=== PATIENT | male | born 1950 | race Caucasian/White ===

== ENCOUNTER 2018-08-16 16:24 | Inpatient (IN) | payer MEDICARE, BC ==
[~2018-08-16] VITALS: Ht 180.3 cm; Wt 107.3 kg
--- NOTE | ~2018-08-16 | MORECARE ---
CASE MANAGEMENT DISCHARGE SUMMARY PATIENT: SAUL GUSTAFSON UNIT: [id number] ADM DATE: 08/16/18 AGE: 67 : 51 SEX: M ROOM/BED: D.2136 AUTHOR: TAB DOBBINS PHYSICIAN: REFERRING PHYSICIAN: AALIYAH QUINONES DO DATE OF SERVICE: 08/18/18 Discharge Plan Patient Name: SAUL GUSTAFSON Facility: [facility]:[place] : 1950 Planned Disposition: [facility] Facility w Plan Readm Anticipated Discharge Date: 08/18/18 Discharge Date: Expected LOS: 2 Initial Reviewer: [email or web address] Initial Review Date: 08/18/2018 Generated: 08/18/18 2:02 pm DCPIA - Discharge Planning Initial Assessment Updated by [email or web address]: Jayne Langford on 08/18/18 12:57 pm * Is the patient Alert and Oriented? Yes * [facility]read[facility] * Facility Name [facility] * ADLs Partial Dependent * Partial ADLs (Assistance needed) Ambulation * Equipment Nebulizer Walker * Community resources currently utilized None * Additional services required to return to the preadmission environment? No * Can the patient safely return to the preadmission environment? Yes * Has this patient been hospitalized within the prior 30 days at any hospital? No Patient Name: SAUL GUSTAFSON Page [id number] at 1302 All edits/amendments must be made on the electronic document DICTATION DATE: 08/18/18 1301 WRECKING MECHANIC: HARLAN 08/18/18 1301 RPT#: [id number] DC DATE: STATUS: ADM IN [facility] [address] [place] [address] END OF REPORT
--- NOTE | ~2018-08-16 | MORECARE ---
CASE MANAGEMENT DISCHARGE SUMMARY PATIENT: SAUL GUSTAFSON UNIT: [id number] ADM DATE: 08/16/18 AGE: 67 : 51 SEX: M ROOM/BED: D.2136 AUTHOR: TAB DOBBINS PHYSICIAN: REFERRING PHYSICIAN: AALIYAH QUINONES DO DATE OF SERVICE: 08/18/18 Discharge Plan Patient Name: SAUL GUSTAFSON Facility: [facility]:[place] : 1950 [facility] Plan Readm Anticipated Discharge Date: 08/18/18 Discharge Date: Expected LOS: 2 Initial Reviewer: [email or web address] Initial Review Date: 08/18/2018 Generated: 08/18/18 2:16 pm Comments DCP- Discharge Planning Updated by [email or web address]: Jayne Langford on 08/18/18 12:[address] Patient Name: SUAL GUSTAFSON Admission Status: Urgent Accout number: [id number] Admission Date: 08-16-2018 : 1950 Admission Diagnosis:PNEUMONIA, UNSPECIFIED ORGANISM Attending: AALIYAH QUINONES Current LOS: 2 Anticipated DC Date: 08-18-2018 [facility] Readm , PT IS IN A ALF BED AT THE [facility]. Primary Insurance: MEDICARE A & B Discharge Planning Comments: CM MET WITH PATIENT ABOUT DC PLANNING. STATES LIVES AT THE [facility]. MARCO FROM THE [facility] CONTACTED AND SHE IS HERE AT THE HOSPITAL. PATIENT STATES PLANS TO BE DISCHARGED BACK TO THE [facility] TODAY. RN TO CALL THE [facility] TO GIVE REPORT AT [phone]. [facility] WILL BE HERE AT APPROX 1:30PM TO GLOBAL TECHNICAL WRITER PATIENT. Mining Analyst: Jayne Langford DCPIA - Discharge Planning Initial Assessment Updated by [email or web address]: Jayne Langford on 08/18/18 12:57 pm * Is the patient Alert and Oriented? Yes * Preadmission Environment [facility] * Facility Name [facility] * ADLs Partial Dependent * Partial ADLs (Assistance needed) Ambulation * Equipment Nebulizer Walker * Community resources currently utilized None * Additional services required to return to the preadmission environment? No * Can the patient safely return to the preadmission environment? Yes * Has this patient been hospitalized within the prior 30 days at any hospital? No Last DP export: 08/18/18 12:02 Patient Name: SAUL GUSTAFSON Page [id number] at 1316 All edits/amendments must be made on the electronic document DICTATION DATE: 08/18/181315 ELEMENTARY EDUCATION TUTOR: HARLAN 08/18/181315 RPT#: [id number] DC DATE: STATUS: ADM IN [facility] [address] [place] [address] END OF REPORT
--- NOTE | ~2018-08-16 | MORECARE ---
CASE MANAGEMENT DISCHARGE SUMMARY PATIENT: SAUL GUSTAFSON UNIT: [id number] ADM DATE: 08/16/18 AGE: 67 : 51 SEX: M ROOM/BED: D.7316 AUTHOR: TAB DOBBINS PHYSICIAN: REFERRING PHYSICIAN: AALIYAH QUINONES DO DATE OF SERVICE: 08/21/18 Discharge Plan Patient Name: SAUL GUSTAFSON Facility: [facility]:[place] : 1950 Planned Disposition: Nursing Facility [facility] Cert Anticipated Discharge Date: 08/18/18 Discharge Date: 08/18/2018 Expected LOS: 2 Initial Reviewer: [email or web address] Initial Review Date: 08/18/2018 Generated: 08/21/18 10:06 am Comments DCP- Discharge Planning Updated by [email or web address]: Jayne Langford on 08/18/18 12:[address] Patient Name: SAUL GUSTAFSON Admission Status: Urgent Accout number: [id number] Admission Date: 08-16-2018 : 1950 Admission Diagnosis:PNEUMONIA, UNSPECIFIED ORGANISM Attending: AALIYAH QUINONES Current LOS: 2 Anticipated DC Date: 08-18-2018 Planned Disposition: [facility] w Plan Readm , [facility] Primary Insurance: MEDICARE A & B Discharge Planning Comments: CM MET WITH PATIENT ABOUT DC PLANNING. STATES LIVES AT THE [facility]. [facility] CONTACTED AND SHE IS HERE AT THE HOSPITAL. PATIENT STATES PLANS TO BE DISCHARGED BACK TO THE [facility] TODAY. RN TO CALL [facility] TO GIVE REPORT AT [phone]. [facility] BE HERE AT APPROX 1:30PM TO GLUING MACHINE OPERATOR PATIENT. Draftsperson: Jayne Langford DCPIA - Discharge Planning Initial Assessment Updated by [id number]: Jayne Lagnford on 08/18/18 12:57 pm * Is the patient Alert and Oriented? Yes * [facility]read[facility] Environment [facility] * [facility] * ADLs Partial Dependent * Partial ADLs (Assistance needed) Ambulation * Equipment Nebulizer Walker * Community resources currently utilized None * Additional services required to return to the preadmission environment? No * Can the patient safely return to the preadmission environment? Yes * Has this patient been hospitalized within the prior 30 days at any hospital? No Last DP export: 08/18/18 12:16 Patient Name: SAUL GUSTAFSON Page [id number] at 0906 All edits/amendments must be made on the electronic document DICTATION DATE: 08/21/18905 WET END SUPERVISOR: HARLAN 08/21/18905 RPT#: [id number] DC DATE:08/18/18 STATUS: DIS IN [facility] [address] [place] [address] END OF REPORT
[~2018-08-16 16:24] MED LIST: ALDACTONE100 MG PO; ALDACTONE50 MG PO; BROVANA15 MCG/2 M INH; CHRONULAC30 ML PO; CYCLOBENZAPRINE10 MG PO; FLOXIN 0.3 % OTI5 ML EACH EAR; IPRAT-ALBUT 0.5-3 ML UPD; LASIX20 MG PO; LASIX80 MG; LEVAQUIN 5500 MG/100 PO; OMNICEF300 MG PO; PHENERGAN25 M1 PO; PULMICORT0.5 MG/21 UPD; STERAPRED DS 1010 MG PO; VICOPROFEN 7.5/1 TAB PO; VITAMIN D10000 UNI1 PO; ZOFRAN4 MG PO; [UNRECOGNIZED DRUG - OTHER]
[2018-08-16 17:22] VITALS: BP 108/49
[2018-08-16 17:52] LABS: BASOPHILS 0.2 % (0-2); EOSINOPHILS 2.6 % (0-7); HEMOGLOBIN 9.2 g/dL (13.5-17.5); IMMATURE GRANULOCYTES 0.2 % (0-5); LYMPHOCYTES 26.7 % (15-50); MCH 25.6 pg (26.0-34.0); MCHC 31.7 g/dL (31.0-37.0); MCV 80.8 fL (80.0-100.0); MEAN PLATELET VOLUME 9.3 fL (7.4-10.4); MONOCYTES 12.4 % (2-11); NEUTROPHILS 57.9 % (40-80); PLATELET COUNT 141 10x3/uL (130-400); RBC 3.59 10x6/uL (4.20-6.10); RDW 15.9 % (11.5-14.5); WBC 4.6 10x3/uL (4.8-10.8)
[2018-08-16 18:04] LABS: ALBUMIN 3.3 g/dL (3.4-5.0); ANION GAP 12.7 mmol/L (8-16); BILIRUBIN - TOTAL 0.48 mg/dL (0.2-1.3); CALCIUM 9.3 mg/dL (8.5-10.1); CARBON DIOXIDE 25.6 mmol/L (21.0-32.0); CREATININE - SERUM 1.7 mg/dL (0.6-1.3); POTASSIUM - SERUM 4.3 mmol/L (3.5-5.1)
[2018-08-16 19:00] VITALS: BP 128/48
[2018-08-17 00:55] VITALS: BP 118/33
[2018-08-17 05:02] LABS: BASOPHILS 0.8 % (0-2); EOSINOPHILS 2.9 % (0-7); HEMATOCRIT 28.4 % (42.0-54.0); IMMATURE GRANULOCYTES 0.3 % (0-5); LYMPHOCYTES 29.1 % (15-50); MCH 25.6 pg (26.0-34.0); MCHC 31.7 g/dL (31.0-37.0); MCV 80.9 fL (80.0-100.0); MEAN PLATELET VOLUME 9.1 fL (7.4-10.4); MONOCYTES 14.8 % (2-11); NEUTROPHILS 52.1 % (40-80); PLATELET COUNT 120 10x3/uL (130-400); RBC 3.51 10x6/uL (4.20-6.10); WBC 3.9 10x3/uL (4.8-10.8)
[2018-08-17 05:20] LABS: ANION GAP 16.4 mmol/L (8-16); BILIRUBIN - TOTAL 0.59 mg/dL (0.2-1.3); CALCIUM 8.5 mg/dL (8.5-10.1); CARBON DIOXIDE 22.8 mmol/L (21.0-32.0); CREATININE - SERUM 1.6 mg/dL (0.6-1.3); POTASSIUM - SERUM 4.2 mmol/L (3.5-5.1); PROTEIN - SERUM 6.4 g/dL (6.4-8.2)
[2018-08-17 05:57] LABS: APPEARANCE CLEAR (CLEAR); BILIRUBIN NEGATIVE (NEGATIVE); COLOR YELLOW (YELLOW); GLUCOSE NEGATIVE (NEGATIVE); KETONE NEGATIVE (NEGATIVE); NITRITE NEGATIVE (NEGATIVE); PROTEIN NEGATIVE (NEGATIVE); SPECIFIC GRAVITY 1.015 (1.005-1.020); UROBILINOGEN NORMAL (NORMAL)
[2018-08-17 07:08] VITALS: BP 120/42
[2018-08-17 08:47] VITALS: BP 138/61
[2018-08-17 11:06] VITALS: BP 126/71
[2018-08-17 13:13] VITALS: Ht 180.3 cm; Wt 107.3 kg
[2018-08-17 16:17] VITALS: BP 121/47
[2018-08-17 22:25] VITALS: BP 126/49
[2018-08-18 02:17] VITALS: BP 138/42
[2018-08-18 05:59] VITALS: BP 119/43
[2018-08-18 06:11] LABS: BASOPHILS 0.7 % (0-2); HEMATOCRIT 28.9 % (42.0-54.0); HEMOGLOBIN 9.2 g/dL (13.5-17.5); IMMATURE GRANULOCYTES 0.2 % (0-5); LYMPHOCYTES 29.8 % (15-50); MCH 25.8 pg (26.0-34.0); MCHC 31.8 g/dL (31.0-37.0); MEAN PLATELET VOLUME 10.1 fL (7.4-10.4); MONOCYTES 13.4 % (2-11); NEUTROPHILS 52.9 % (40-80); PLATELET COUNT 133 10x3/uL (130-400); RBC 3.57 10x6/uL (4.20-6.10); RDW 16.1 % (11.5-14.5); WBC 4.4 10x3/uL (4.8-10.8)
[2018-08-18 06:29] LABS: ANION GAP 15.9 mmol/L (8-16); BILIRUBIN - TOTAL 0.42 mg/dL (0.2-1.3); CALCIUM 8.5 mg/dL (8.5-10.1); CARBON DIOXIDE 21.2 mmol/L (21.0-32.0); CREATININE - SERUM 1.5 mg/dL (0.6-1.3); POTASSIUM - SERUM 4.1 mmol/L (3.5-5.1); PROTEIN - SERUM 6.4 g/dL (6.4-8.2)
[2018-08-18 08:14] VITALS: BP 127/52
[2018-08-18] MEDS ORDERED: IPRAT-ALBUT 0.5-3 ML UPD (11:58)
[2018-08-18] MEDS ORDERED: OMNICEF300 MG PO (11:59)
[2018-08-18] MEDS ORDERED: PULMICORT0.5 MG/21 UPD (12:03)
[2018-08-18 12:06] VITALS: BP 126/42
== END 2018-08-18 14:35 | DRG 190 ==
LOC: D.M2 16:24
PROVIDERS: Family Medicine
DX: J44.0 Chronic obstructive pulmonary disease with (acute) lower respiratory infection (principal); J18.9 Pneumonia, unspecified organism; D61.818 Other pancytopenia; K74.60 Unspecified cirrhosis of liver; J44.1 Chronic obstructive pulmonary disease with (acute) exacerbation; J20.9 Acute bronchitis, unspecified; E55.9 Vitamin D deficiency, unspecified; E11.9 Type 2 diabetes mellitus without complications; I25.10 Atherosclerotic heart disease of native coronary artery without angina pectoris; Z72.0 Tobacco use

== ENCOUNTER → 2018-08-21 07:42 | Outpatient (CLI) | payer MEDICARE, BC, MEDICAID ==
[2018-08-17 13:13] VITALS: BMI 32.7
== END | disposition home or self-care (01) ==
LOC: D.CT 07:42
DX: R10.11 Right upper quadrant pain (principal)

== ENCOUNTER → 2019-05-30 13:07 | Outpatient (CLI) | payer MEDICARE, BC, MEDICAID ==
[2018-08-17 13:13] VITALS: BMI 32.7
== END | disposition home or self-care (01) ==
LOC: D.RT 13:07
PROVIDERS: ATTEND Internal Medicine Pulmonary Disease
DX: R06.02 Shortness of breath (principal)

== ENCOUNTER 2020-06-12 15:59 | Emergency (ER) | payer MEDICARE, BC, MEDICAID ==
[~2020-06-12] VITALS: Ht 180.3 cm; Wt 101.8 kg
[2020-06-12 16:05] VITALS: Ht 180.3 cm; Wt 101.8 kg
[2020-06-12 16:37] LABS: BASOPHILS 0.4 % (0-2); EOSINOPHILS 1.4 % (0-7); HEMOGLOBIN 13.7 g/dL (13.5-17.5); IMMATURE GRANULOCYTES 0.5 % (0-5); LYMPHOCYTES 12.5 % (15-50); MCH 29.7 pg (26.0-34.0); MCHC 34.3 g/dL (31.0-37.0); MCV 86.6 fL (80.0-100.0); MEAN PLATELET VOLUME 9.1 fL (7.4-10.4); MONOCYTES 13.9 % (2-11); NEUTROPHILS 71.3 % (40-80); PLATELET COUNT 122 10x3/uL (130-400); RBC 4.62 10x6/uL (4.20-6.10); RDW 15.3 % (11.5-14.5); WBC 5.6 10x3/uL (4.8-10.8)
[2020-06-12 17:04] LABS: CALC OSMOLALITY 277 mosm/kg (275-300); CALCIUM 9.1 mg/dL (8.5-10.1); CARBON DIOXIDE 24.2 mmol/L (21.0-32.0); CHLORIDE - SERUM 101 mmol/L (98-107); CREATININE - SERUM 1.6 mg/dL (0.6-1.3); POTASSIUM - SERUM 4.2 mmol/L (3.5-5.1); SODIUM 135 mmol/L (136-145); UREA NITROGEN 20 mg/dL (7-18); eGFR NON AFRICAN AMERICAN 46 mL/min (90-120)
[2020-06-12 17:13] LABS: ALBUMIN 3.6 g/dL (3.4-5.0); ALKALINE PHOSPHATASE 110 U/L (30-120); ALT (SGPT) 32 U/L (10-68); AMYLASE - SERUM 78 U/L (25-115); BILIRUBIN - TOTAL 0.99 mg/dL (0.2-1.3); LIPASE 233 U/L (73-393); PROTEIN - SERUM 7.5 g/dL (6.4-8.2); TROPONIN-I < 0.017 ng/mL (0.000-0.060)
[2020-06-12 17:27] LABS: GLUCOSE 181 mg/dL (74-106)
[2020-06-12 19:06] LABS: BILIRUBIN NEGATIVE (NEGATIVE); GLUCOSE NEGATIVE (NEGATIVE); KETONE NEGATIVE (NEGATIVE); NITRITE NEGATIVE (NEGATIVE); UROBILINOGEN NORMAL (NORMAL)
[2020-06-12 20:48] VITALS: BP 125/88
== END 2020-06-12 20:49 | disposition home or self-care (01) ==
LOC: D.ER 15:59
PROVIDERS: Emergency Medicine
DX: R10.9 Unspecified abdominal pain (principal); J44.9 Chronic obstructive pulmonary disease, unspecified; Z72.0 Tobacco use